=== PATIENT | male | born 1940 | race Caucasian/White ===

== ENCOUNTER 2016-06-09 15:24 | Inpatient (IN) | payer OTHER, BC ==
[~2016-06-09] VITALS: Ht 185.4 cm; Wt 77.0 kg
[~2016-06-09 15:24] MED LIST: ACETAMINOPHEN1 EAC4 PO; ASPIR 8181 M1 PO; ATENOLOL50 MG PO; CARDIZEM CD360 MG PO; CARDIZEM60 MG PO; CARVEDILOL12.5 MG PO; CARVEDILOL25 MG PO; CORDARONE200 MG PO; CRESTOR20 MG PO; DILTIAZEM 24HR360 M1 PO; ELIQUIS5 MG PO; ESCITALOPRAM OX20 MG PO; FENOFIBRATE145 M1 PO; FOLIC ACID1 MG PO; FUROSEMIDE20 MG PO; FUROSEMIDE40 MG PO; IRON325 M1 PO; LASIX20 MG PO; LEXAPRO10 MG PO; LEXAPRO20 MG PO; LISINOPRIL5 MG PO; LO-DOSE ASPIRIN81 M1 PO; LOPRESSOR25 MG PO; METOPROLOL SUCC25 MG PO; NEXIUM40 MG PO; NITROSTAT0.4 MG SL; PANTOPRAZOLE SO40 MG PO; PROAIR HFA8.5 GM IH; PROTONIX40 MG PO; ST. JOSEPH ASPI81 MG PO; TOPROL XL25 MG PO; TRAMADOL HCL50 MG PO; TRICOR145 MG PO; TYLENOL EXTRA500 MG PO; TYLENOL REGULA325 MG PO; VITAMIN B-122500 MCG SL
[2016-06-09 17:32] VITALS: BP 101/74
[2016-06-09] MEDS ORDERED: COLACE100 MG PO (17:57)
[2016-06-10 00:01] VITALS: BP 109/70
[2016-06-10 05:23] VITALS: BP 102/71
[2016-06-10 15:24] VITALS: BP 96/70
[2016-06-10 21:04] VITALS: BP 100/50
[2016-06-11 05:36] VITALS: BP 114/66
[2016-06-11 08:11] VITALS: BP 118/76
[2016-06-11 15:17] VITALS: BP 99/68
[2016-06-11 21:00] VITALS: BP 117/77
[2016-06-12 04:00] VITALS: BP 142/74
[2016-06-12 12:58] VITALS: BP 108/68
[2016-06-12 15:10] VITALS: BP 119/70
[2016-06-13 04:00] VITALS: BP 101/65
[2016-06-13] MEDS ORDERED: CORDARONE200 MG PO (12:26)
[2016-06-13] MEDS ORDERED: FUROSEMIDE40 MG PO (12:26)
[2016-06-13] MEDS ORDERED: Tylenol Extra Streng PO (12:26)
[2016-06-13] MEDS ORDERED: TYLENOL PM1 CAPLET PO (12:26)
[2016-06-13] MEDS ORDERED: LOPRESSOR25 MG PO (12:26)
[2016-06-13] MEDS ORDERED: PROTONIX40 MG PO (12:26)
[2016-06-13 13:50] LABS: HEMATOCRIT 38.5 % (38.0-50.0); MCH 31.3 PG (29.0-34.0); MCV 92.1 FL (86-99); MEAN PLAT.VOLUME 11.7 uM^3 (9.0-12.4); PLATELET COUNT 219 K/uL (156-360); RBC DIS.WIDTH-CV 16.3 % (11.8-14.6); RBC DIS.WIDTH-SD 54.3 % (39-53); RED BLOOD COUNT 4.18 M/uL (4.00-5.50); WHITE BLOOD COUNT 5.2 K/uL (4.1-10.2)
[2016-06-13 13:55] LABS: EOSINOPHIL (%) 2.1 % (0-5); EOSINOPHIL COUNT 0.1 K/uL (0-0.3); IMMATURE GRANULOCYTE (%) 0.2 % (0.0-0.7); LYMPHOCYTE COUNT 0.5 K/uL (1.0-2.8); MONOCYTE (%) 10.1 % (3-12); MONOCYTE COUNT 0.5 K/uL (0-0.8); NEUTROPHIL (%) 77.9 % (45-76)
[2016-06-13 14:05] LABS: ANION GAP 16 MEQ/L (2-14); CHLORIDE 96 MEQ/L (99-109); POTASSIUM 3.5 MEQ/L (3.7-5.4); SAMPLE HEMOLYSIS CHECK 0; SAMPLE ICTERIC CHECK 0; SAMPLE LIPEMIA CHECK 0; SODIUM 139 MEQ/L (136-147); TOTAL BILIRUBIN 1.4 MG/DL (0.0-1.0)
[2016-06-13 14:13] LABS: ALKALINE PHOSPHATASE 71 IU/L (3-129); GFR ESTIMATE (CALCULATED) 53 mL/min/; GLUCOSE 122 mg/dL (70-99); UREA NITROGEN (BUN) 29 mg/dL (9-23)
[2016-06-13 15:29] VITALS: BP 99/62
[2016-06-14 05:06] VITALS: BP 102/73
[2016-06-14] MEDS ORDERED: ELIQUIS5 MG PO (13:04)
[2016-06-14 15:56] VITALS: BP 102/65
[2016-06-15 05:17] VITALS: BP 107/70
[2016-06-15 15:32] VITALS: BP 96/64
[2016-06-15 20:05] VITALS: BP 116/67
[2016-06-16 05:32] VITALS: BP 101/62
[2016-06-16] MEDS ORDERED: LASIX40 MG PO (10:26)
[2016-06-16] MEDS ORDERED: K-DUR20 MEQ PO (10:46)
== END 2016-06-16 11:00 | disposition home health service (06) | DRG 945 ==
LOC: 3WEST 15:24
PROVIDERS: Psychiatry & Neurology Neurology
PROC: F07M0ZZ Range of Motion and Joint Mobility Treatment of Musculoskeletal System - Whole Body (ICD-10-PCS; principal; 2016-06-09)
PROC: 5A2204Z Restoration of Cardiac Rhythm, Single (ICD-10-PCS; 2016-06-13)
DX: R41.0 Disorientation, unspecified (principal); G93.40 Encephalopathy, unspecified; J96.01 Acute respiratory failure with hypoxia; D62 Acute posthemorrhagic anemia; R26.9 Unspecified abnormalities of gait and mobility; K21.9 Gastro-esophageal reflux disease without esophagitis; E78.5 Hyperlipidemia, unspecified; F32.9 Major depressive disorder, single episode, unspecified; K22.70 Barrett's esophagus without dysplasia; I25.10 Atherosclerotic heart disease of native coronary artery without angina pectoris; I48.2 Chronic atrial fibrillation; E87.5 Hyperkalemia; G72.9 Myopathy, unspecified; E87.1 Hypo-osmolality and hyponatremia; I50.9 Heart failure, unspecified; R53.1 Weakness
CPT/HCPCS: 80053; 85025; 92507 GN; 92523 GN; 93005; 97110 GO; 97530 GP; 97532 GN

== ENCOUNTER 2016-08-28 10:57 | Inpatient (IN) | payer OTHER, BC ==
[~2016-08-28] VITALS: Ht 185.4 cm; Wt 82.7 kg
[~2016-08-28 10:57] MED LIST changes: +COLACE100 MG PO; +K-DUR20 MEQ PO; +LASIX40 MG PO; +TYLENOL PM1 CAPLET PO; +Tylenol Extra Streng PO
[2016-08-28 11:59] LABS: EOSINOPHIL (%) 0.5 % (0-5); HEMATOCRIT 29.1 % (38.0-50.0); IMMATURE GRANULOCYTE (%) 0.5 % (0.0-0.7); INSTRUMENT ABS NEUTROPHIL CT 3.3 K/uL; LYMPHOCYTE COUNT 0.5 K/uL (1.0-2.8); MCH 33.1 PG (29.0-34.0); MCHC 32.6 G/DL (30.0-36.0); MCV 101.4 FL (86-99); MEAN PLAT.VOLUME 11.1 uM^3 (9.0-12.4); MONOCYTE (%) 12.6 % (3-12); MONOCYTE COUNT 0.6 K/uL (0-0.8); NEUTROPHIL (%) 74.9 % (45-76); NEUTROPHIL COUNT 3.3 K/uL (1.8-6.4); NRBC (%) 0.5 /100 WBC (0-0); PLATELET COUNT 177 K/uL (156-360); RBC DIS.WIDTH-CV 18.3 % (11.8-14.6); RBC DIS.WIDTH-SD 68.5 % (39-53); RED BLOOD COUNT 2.87 M/uL (4.00-5.50); WHITE BLOOD COUNT 4.4 K/uL (4.1-10.2)
[2016-08-28 12:18] LABS: CHLORIDE 101 mEq/L (99-109); POTASSIUM 4.7 mEq/L (3.7-5.4); SODIUM 130 mEq/L (136-147)
[2016-08-28 12:20] LABS: GLUCOSE 137 mg/dL (70-99)
[2016-08-28 12:22] LABS: ANION GAP 11 MEQ/L (2-14); TOTAL BILIRUBIN 1.7 mg/dL (0.0-1.0)
[2016-08-28 12:24] LABS: ALKALINE PHOSPHATASE 96 IU/L (3-129); GFR ESTIMATE (CALCULATED) 57 mL/min/
[2016-08-28 12:25] LABS: UREA NITROGEN (BUN) 18 mg/dL (9-23)
[2016-08-28 12:28] LABS: TROP-I INTERPRETATION NEGATIVE; TROPONIN-I 0.27 ng/mL (0.0-0.30)
[2016-08-28] MEDS ORDERED: PAIN RELIEF325 M1 PO (13:27)
[2016-08-28] MEDS ORDERED: ASPIR 8181 M1 PO (13:30)
[2016-08-28] MEDS ORDERED: LEXAPRO20 MG PO (13:31)
[2016-08-28] MEDS ORDERED: LASIX20 MG PO (13:32)
[2016-08-28] MEDS ORDERED: K-DUR20 MEQ PO (13:35)
[2016-08-28] MEDS ORDERED: CRESTOR20 MG PO (13:36)
[2016-08-28 13:39] LABS: CREATINE KINASE 69 IU/L (1-294); TOTAL CK 69 IU/L (1-294)
[2016-08-28 13:48] LABS: ADD MIUA? YES; BILIRUBIN NEGATIVE; BLOOD NEGATIVE; COLOR AMBER ((YELLOW)); GLUCOSE (STRIP) NEGATIVE; KETONES NEGATIVE; LEUKOCYTES NEGATIVE; NITRITE NEGATIVE; PROTEIN (STRIP) 30; SPECIFIC GRAVITY 1.021 (1.000-1.030)
[2016-08-28 13:56] LABS: BACTERIA NONE SEEN /HPF; EPITHELIAL CELLS RARE /HPF; MUCUS TRACE /LPF; RED BLOOD CELLS NONE SEEN /HPF (0-5)
[2016-08-28] MEDS ORDERED: AMIODARONE HCL100 MG PO (13:56)
[2016-08-28] MEDS ORDERED: ELIQUIS5 MG PO (13:58)
[2016-08-28] MEDS ORDERED: METOPROLOL SUCC25 MG PO (13:59)
[2016-08-28] MEDS ORDERED: LISINOPRIL2.5 MG PO (14:00)
[2016-08-28 17:52] VITALS: BP 95/64
[2016-08-28 19:00] VITALS: BP 107/67
[2016-08-28 21:42] LABS: HEMATOCRIT 26.2 % (38.0-50.0); MCV 102.7 FL (86-99)
[2016-08-28 23:00] VITALS: BP 105/64
[2016-08-29 03:00] VITALS: BP 100/64
[2016-08-29 06:54] LABS: HEMATOCRIT 28.6 % (38.0-50.0); MCH 33.3 PG (29.0-34.0); MCHC 32.2 G/DL (30.0-36.0); MCV 103.6 FL (86-99); MEAN PLAT.VOLUME 11.1 uM^3 (9.0-12.4); NRBC (%) 0.4 /100 WBC (0-0); PLATELET COUNT 163 K/uL (156-360); RBC DIS.WIDTH-CV 18.9 % (11.8-14.6); RBC DIS.WIDTH-SD 71.7 % (39-53); RED BLOOD COUNT 2.76 M/uL (4.00-5.50); WHITE BLOOD COUNT 4.5 K/uL (4.1-10.2)
[2016-08-29 07:18] LABS: TROP-I INTERPRETATION NEGATIVE; TROPONIN-I 0.29 ng/mL (0.0-0.30)
[2016-08-29 07:19] LABS: ANION GAP 11 MEQ/L (2-14); CHLORIDE 100 MEQ/L (99-109); GFR ESTIMATE (CALCULATED) > 59 mL/min/; GLUCOSE 108 mg/dL (70-99); SAMPLE HEMOLYSIS CHECK 1; SAMPLE ICTERIC CHECK 0; SAMPLE LIPEMIA CHECK 0; SODIUM 130 MEQ/L (136-147); UREA NITROGEN (BUN) 20 mg/dL (9-23)
[2016-08-29 07:20] LABS: POTASSIUM 4.7 MEQ/L (3.7-5.4)
[2016-08-29 07:58] VITALS: BP 99/67
[2016-08-29 15:32] LABS: BASE EXCESS -6.1 mEq/L (-3 to +3); CARBOXY HGB 1.9 % (0-5); METHEMOGLOBIN 0.2 % (0-1.5); PCO2 29 mm Hg (35-45); PO2 82 mm Hg (80-100)
[2016-08-29 15:40] LABS: VENOUS PCO2 35 mm Hg (41-51)
[2016-08-29 15:40] LABS: COMMENTS - BLOOD GASES C+
[2016-08-29 15:41] LABS: CARBON DIOXIDE (BICARBONATE) < 32.0 MEQ/L (20-31)
[2016-08-29 19:27] VITALS: BP 107/70
[2016-08-30] VITALS (8 sets, daily range): BP systolic 90–107; BP diastolic 56–70
[2016-08-30 06:50] LABS: EOSINOPHIL (%) 0.4 % (0-5); HEMATOCRIT 27.8 % (38.0-50.0); IMMATURE GRANULOCYTE (%) 0.6 % (0.0-0.7); INSTRUMENT ABS NEUTROPHIL CT 3.8 K/uL; LYMPHOCYTE COUNT 0.4 K/uL (1.0-2.8); MCH 33.7 PG (29.0-34.0); MCHC 32.4 G/DL (30.0-36.0); MCV 104.1 FL (86-99); MEAN PLAT.VOLUME 11.5 uM^3 (9.0-12.4); MONOCYTE (%) 13.1 % (3-12); MONOCYTE COUNT 0.6 K/uL (0-0.8); NEUTROPHIL (%) 77.3 % (45-76); NEUTROPHIL COUNT 3.8 K/uL (1.8-6.4); PLATELET COUNT 183 K/uL (156-360); RBC DIS.WIDTH-SD 71.9 % (39-53); RED BLOOD COUNT 2.67 M/uL (4.00-5.50); WHITE BLOOD COUNT 4.9 K/uL (4.1-10.2)
[2016-08-30 07:23] LABS: ANION GAP 13 MEQ/L (2-14); CHLORIDE 101 MEQ/L (99-109); GFR ESTIMATE (CALCULATED) 53 mL/min/; GLUCOSE 122 mg/dL (70-99); POTASSIUM 5.1 MEQ/L (3.7-5.4); SAMPLE HEMOLYSIS CHECK 0; SAMPLE ICTERIC CHECK 0; SAMPLE LIPEMIA CHECK 0; SODIUM 132 MEQ/L (136-147); UREA NITROGEN (BUN) 25 mg/dL (9-23)
[2016-08-31] VITALS (7 sets, daily range): BP systolic 85–105; BP diastolic 54–66
[2016-08-31 07:02] LABS: EOSINOPHIL (%) 1.5 % (0-5); EOSINOPHIL COUNT 0.1 K/uL (0-0.3); HEMATOCRIT 27.3 % (38.0-50.0); IMMATURE GRANULOCYTE (%) 0.6 % (0.0-0.7); INSTRUMENT ABS NEUTROPHIL CT 3.4 K/uL; LYMPHOCYTE COUNT 0.5 K/uL (1.0-2.8); MCH 32.8 PG (29.0-34.0); MCHC 31.9 G/DL (30.0-36.0); MEAN PLAT.VOLUME 11.1 uM^3 (9.0-12.4); MONOCYTE (%) 14.8 % (3-12); MONOCYTE COUNT 0.7 K/uL (0-0.8); NEUTROPHIL (%) 72.6 % (45-76); NEUTROPHIL COUNT 3.4 K/uL (1.8-6.4); NRBC (%) 0.4 /100 WBC (0-0); PLATELET COUNT 179 K/uL (156-360); RBC DIS.WIDTH-CV 18.7 % (11.8-14.6); RBC DIS.WIDTH-SD 71.2 % (39-53); RED BLOOD COUNT 2.65 M/uL (4.00-5.50); WHITE BLOOD COUNT 4.7 K/uL (4.1-10.2)
[2016-08-31 07:19] LABS: ANION GAP 10 MEQ/L (2-14); CHLORIDE 100 MEQ/L (99-109); GFR ESTIMATE (CALCULATED) > 59 mL/min/; GLUCOSE 107 mg/dL (70-99); POTASSIUM 4.6 MEQ/L (3.7-5.4); SAMPLE HEMOLYSIS CHECK 0; SAMPLE ICTERIC CHECK 0; SAMPLE LIPEMIA CHECK 0; SODIUM 130 MEQ/L (136-147); UREA NITROGEN (BUN) 29 mg/dL (9-23)
[2016-09-01 03:41] VITALS: BP 102/60
[2016-09-01 06:52] LABS: EOSINOPHIL (%) 2.5 % (0-5); EOSINOPHIL COUNT 0.1 K/uL (0-0.3); HEMATOCRIT 27.2 % (38.0-50.0); INSTRUMENT ABS NEUTROPHIL CT 2.9 K/uL; LYMPHOCYTE COUNT 0.4 K/uL (1.0-2.8); MCHC 32.7 G/DL (30.0-36.0); MCV 103.8 FL (86-99); MEAN PLAT.VOLUME 11.1 uM^3 (9.0-12.4); MONOCYTE (%) 12.9 % (3-12); MONOCYTE COUNT 0.5 K/uL (0-0.8); NEUTROPHIL (%) 73.7 % (45-76); NEUTROPHIL COUNT 2.9 K/uL (1.8-6.4); PLATELET COUNT 181 K/uL (156-360); RBC DIS.WIDTH-CV 18.2 % (11.8-14.6); RBC DIS.WIDTH-SD 69.5 % (39-53); RED BLOOD COUNT 2.62 M/uL (4.00-5.50)
[2016-09-01 07:13] LABS: ANION GAP 8 MEQ/L (2-14); CHLORIDE 99 MEQ/L (99-109); GFR ESTIMATE (CALCULATED) > 59 mL/min/; GLUCOSE 101 mg/dL (70-99); POTASSIUM 4.2 MEQ/L (3.7-5.4); SAMPLE HEMOLYSIS CHECK 0; SAMPLE ICTERIC CHECK 0; SAMPLE LIPEMIA CHECK 0; SODIUM 128 MEQ/L (136-147); UREA NITROGEN (BUN) 24 mg/dL (9-23)
[2016-09-01 07:16] VITALS: BP 96/65
[2016-09-01 12:10] VITALS: BP 87/56
[2016-09-01 19:41] VITALS: BP 86/53
[2016-09-01 21:32] VITALS: BP 97/60
[2016-09-02 00:54] VITALS: BP 91/56
[2016-09-02 05:19] VITALS: BP 104/61
[2016-09-02 07:32] LABS: EOSINOPHIL (%) 3.6 % (0-5); EOSINOPHIL COUNT 0.1 K/uL (0-0.3); HEMATOCRIT 28.5 % (38.0-50.0); IMMATURE GRANULOCYTE (%) 0.6 % (0.0-0.7); INSTRUMENT ABS NEUTROPHIL CT 2.3 K/uL; LYMPHOCYTE COUNT 0.4 K/uL (1.0-2.8); MCHC 31.6 G/DL (30.0-36.0); MCV 104.4 FL (86-99); MONOCYTE (%) 16.1 % (3-12); MONOCYTE COUNT 0.5 K/uL (0-0.8); NEUTROPHIL (%) 68.7 % (45-76); NEUTROPHIL COUNT 2.3 K/uL (1.8-6.4); PLATELET COUNT 182 K/uL (156-360); RBC DIS.WIDTH-SD 68.3 % (39-53); RED BLOOD COUNT 2.73 M/uL (4.00-5.50); WHITE BLOOD COUNT 3.4 K/uL (4.1-10.2)
[2016-09-02 07:45] VITALS: BP 92/64
[2016-09-02 07:58] LABS: ANION GAP 7 MEQ/L (2-14); CHLORIDE 98 MEQ/L (99-109); GFR ESTIMATE (CALCULATED) > 59 mL/min/; GLUCOSE 87 mg/dL (70-99); POTASSIUM 3.9 MEQ/L (3.7-5.4); SAMPLE HEMOLYSIS CHECK 0; SAMPLE ICTERIC CHECK 0; SAMPLE LIPEMIA CHECK 0; SODIUM 129 MEQ/L (136-147); UREA NITROGEN (BUN) 19 mg/dL (9-23)
[2016-09-02 10:42] VITALS: BP 89/58
== END 2016-09-02 13:01 | disposition short-term general hospital (02) | DRG 286 ==
LOC: EME 10:57 → EDOF 13:49 → 4EAST 17:36
PROVIDERS: Emergency Medicine; Internal Medicine; Internal Medicine Cardiovascular Disease; Physician Assistant
PROC: B218YZZ Fluoroscopy of Left Internal Mammary Bypass Graft using Other Contrast (ICD-10-PCS; principal; 2016-08-29)
PROC: B41FYZZ Fluoroscopy of Right Lower Extremity Arteries using Other Contrast (ICD-10-PCS; principal; 2016-08-29)
PROC: B211YZZ Fluoroscopy of Multiple Coronary Arteries using Other Contrast (ICD-10-PCS; principal; 2016-08-29)
PROC: B213YZZ Fluoroscopy of Multiple Coronary Artery Bypass Grafts using Other Contrast (ICD-10-PCS; principal; 2016-08-29)
PROC: 4A023N8 Measurement of Cardiac Sampling and Pressure, Bilateral, Percutaneous Approach (ICD-10-PCS; principal; 2016-08-29)
PROC: B215YZZ Fluoroscopy of Left Heart using Other Contrast (ICD-10-PCS; principal; 2016-08-29)
DX: I25.5 Ischemic cardiomyopathy (principal); R57.0 Cardiogenic shock; E87.1 Hypo-osmolality and hyponatremia; I50.22 Chronic systolic (congestive) heart failure; N17.9 Acute kidney failure, unspecified; I48.92 Unspecified atrial flutter; D62 Acute posthemorrhagic anemia; T50.8X5A Adverse effect of diagnostic agents, initial encounter; I95.9 Hypotension, unspecified; N18.3 Chronic kidney disease, stage 3 (moderate); I25.10 Atherosclerotic heart disease of native coronary artery without angina pectoris; I12.9 Hypertensive chronic kidney disease with stage 1 through stage 4 chronic kidney disease, or unspecified chronic kidney disease; E78.5 Hyperlipidemia, unspecified; Z96.652 Presence of left artificial knee joint; Z95.5 Presence of coronary angioplasty implant and graft; S30.0XXA Contusion of lower back and pelvis, initial encounter; I48.91 Unspecified atrial fibrillation; K21.9 Gastro-esophageal reflux disease without esophagitis; I27.2 Other secondary pulmonary hypertension; I08.1 Rheumatic disorders of both mitral and tricuspid valves; I70.201 Unspecified atherosclerosis of native arteries of extremities, right leg; W19.XXXA Unspecified fall, initial encounter
CPT/HCPCS: 36600; 70450; 71010; 73502; 73700; 74176; 80048; 80053; 81003; 82550 91; 82553; 82803; 83735; 83880; 84484; 85014; 85018; 85025; 85027; 87040; 93005; 97530 GO; 99281; 99285; C1760; C1769; C1887; C1894; J1644; J1940; J2250; J3010; J7030; J7120

== ENCOUNTER 2016-10-10 15:21 | Inpatient (IN) | payer OTHER, BC ==
[~2016-10-10] VITALS: Ht 185.4 cm; Wt 82.3 kg
[~2016-10-10 15:21] MED LIST changes: +AMIODARONE HCL100 MG PO; +LISINOPRIL2.5 MG PO; +PAIN RELIEF325 M1 PO
[2016-10-10] MEDS ORDERED: UNABLE TO OBTAIN (16:42)
[2016-10-10 17:36] LABS: HEMATOCRIT 33.5 % (38.0-50.0); MCHC 33.1 G/DL (30.0-36.0); MEAN PLAT.VOLUME 10.9 uM^3 (9.0-12.4); PLATELET COUNT 203 K/uL (156-360); RBC DIS.WIDTH-CV 14.6 % (11.8-14.6); RBC DIS.WIDTH-SD 50.1 % (39-53); RED BLOOD COUNT 3.58 M/uL (4.00-5.50)
[2016-10-10 17:39] LABS: MCV 93.6 FL (86-99); WHITE BLOOD COUNT 5.4 K/uL (4.1-10.2)
[2016-10-10 17:55] LABS: CHLORIDE 91 mEq/L (99-109); POTASSIUM 5.1 mEq/L (3.7-5.4); SODIUM 126 mEq/L (136-147)
[2016-10-10 17:57] LABS: GLUCOSE 115 mg/dL (70-99)
[2016-10-10 18:01] LABS: GFR ESTIMATE (CALCULATED) 39 mL/min/
[2016-10-10 18:02] LABS: UREA NITROGEN (BUN) 26 mg/dL (9-23)
[2016-10-10 18:03] LABS: TROP-I INTERPRETATION NEGATIVE; TROPONIN-I 0.04 ng/mL (0.0-0.30)
[2016-10-10 18:18] LABS: ANION GAP 21 MEQ/L (2-14)
[2016-10-10 18:27] LABS: INTER. NORMALIZED RATIO 1.4; PROTHROMBIN TIME 14.4 (9.2-11.2); PTT 29.2 (25-32)
[2016-10-10] MEDS ORDERED: MULTAQ400 MG PO (19:47)
[2016-10-10] MEDS ORDERED: SPIRONOLACTONE25 MG PO (19:48)
[2016-10-10] MEDS ORDERED: TORSEMIDE100 MG PO (19:48)
[2016-10-10 22:27] VITALS: BP 92/72
[2016-10-10 23:55] LABS: TROP-I INTERPRETATION NEGATIVE; TROPONIN-I 0.04 ng/mL (0.0-0.30)
[2016-10-11 04:12] VITALS: BP 99/65
[2016-10-11 07:21] LABS: HEMATOCRIT 29.4 % (38.0-50.0); MCHC 33.3 G/DL (30.0-36.0); MEAN PLAT.VOLUME 11.6 uM^3 (9.0-12.4); PLATELET COUNT 171 K/uL (156-360); RBC DIS.WIDTH-CV 14.6 % (11.8-14.6); RBC DIS.WIDTH-SD 50.3 % (39-53); RED BLOOD COUNT 3.16 M/uL (4.00-5.50); WHITE BLOOD COUNT 5.1 K/uL (4.1-10.2)
[2016-10-11 07:40] LABS: ANION GAP 15 MEQ/L (2-14); CHLORIDE 91 MEQ/L (99-109); GFR ESTIMATE (CALCULATED) 37 mL/min/; GLUCOSE 109 mg/dL (70-99); POTASSIUM 5.4 MEQ/L (3.7-5.4); SAMPLE HEMOLYSIS CHECK 0; SAMPLE ICTERIC CHECK 0; SAMPLE LIPEMIA CHECK 0; SODIUM 123 MEQ/L (136-147); UREA NITROGEN (BUN) 31 mg/dL (9-23)
[2016-10-11 07:44] LABS: TROP-I INTERPRETATION NEGATIVE; TROPONIN-I 0.05 ng/mL (0.0-0.30)
[2016-10-11 08:23] VITALS: BP 97/67
[2016-10-11 11:33] VITALS: BP 101/65
[2016-10-11 15:40] VITALS: BP 97/64
[2016-10-11 20:01] VITALS: BP 106/73
[2016-10-11 22:44] LABS: UR CREATININE CONCENTRATION 139.1 MG/DL
[2016-10-12] VITALS: BP 106/68
[2016-10-12 04:29] VITALS: BP 105/59
[2016-10-12 06:26] LABS: ANION GAP 15 MEQ/L (2-14); CHLORIDE 92 MEQ/L (99-109); GFR ESTIMATE (CALCULATED) 35 mL/min/; GLUCOSE 110 mg/dL (70-99); POTASSIUM 4.9 MEQ/L (3.7-5.4); SAMPLE HEMOLYSIS CHECK 0; SAMPLE ICTERIC CHECK 0; SAMPLE LIPEMIA CHECK 0; SODIUM 125 MEQ/L (136-147); UREA NITROGEN (BUN) 37 mg/dL (9-23)
[2016-10-12 08:21] VITALS: BP 102/62
[2016-10-12 11:38] VITALS: BP 98/69
[2016-10-12 15:21] VITALS: BP 91/61
[2016-10-12 20:00] VITALS: BP 98/60
[2016-10-13 03:30] VITALS: BP 106/72
[2016-10-13 05:34] LABS: EOSINOPHIL (%) 0.2 % (0-5); IMMATURE GRANULOCYTE (%) 0.7 % (0.0-0.7); INSTRUMENT ABS NEUTROPHIL CT 4.3 K/uL; LYMPHOCYTE COUNT 0.4 K/uL (1.0-2.8); MCH 31.6 PG (29.0-34.0); MCHC 33.3 G/DL (30.0-36.0); MCV 94.9 FL (86-99); MEAN PLAT.VOLUME 11.2 uM^3 (9.0-12.4); MONOCYTE (%) 12.5 % (3-12); MONOCYTE COUNT 0.7 K/uL (0-0.8); NEUTROPHIL (%) 78.8 % (45-76); NEUTROPHIL COUNT 4.3 K/uL (1.8-6.4); PLATELET COUNT 169 K/uL (156-360); RBC DIS.WIDTH-CV 14.8 % (11.8-14.6); RED BLOOD COUNT 3.16 M/uL (4.00-5.50); WHITE BLOOD COUNT 5.5 K/uL (4.1-10.2)
[2016-10-13 06:00] LABS: ANION GAP 16 MEQ/L (2-14); CHLORIDE 94 MEQ/L (99-109); GFR ESTIMATE (CALCULATED) 31 mL/min/; GLUCOSE 116 mg/dL (70-99); SAMPLE HEMOLYSIS CHECK 0; SAMPLE ICTERIC CHECK 0; SAMPLE LIPEMIA CHECK 0; SODIUM 127 MEQ/L (136-147); UREA NITROGEN (BUN) 44 mg/dL (9-23)
[2016-10-13 08:25] VITALS: BP 92/60
== END 2016-10-13 14:24 | disposition home health service (06) | DRG 309 ==
LOC: EME 15:21 → EDOF 21:07 → 5WEST 22:12
PROVIDERS: Emergency Medicine; Internal Medicine; Internal Medicine Nephrology; Nurse Practitioner Adult Health
DX: I48.0 Paroxysmal atrial fibrillation (principal); I50.22 Chronic systolic (congestive) heart failure; E87.1 Hypo-osmolality and hyponatremia; E86.0 Dehydration; I27.2 Other secondary pulmonary hypertension; I13.0 Hypertensive heart and chronic kidney disease with heart failure and stage 1 through stage 4 chronic kidney disease, or unspecified chronic kidney disease; D63.1 Anemia in chronic kidney disease; I25.10 Atherosclerotic heart disease of native coronary artery without angina pectoris; K21.9 Gastro-esophageal reflux disease without esophagitis; M19.90 Unspecified osteoarthritis, unspecified site; N18.3 Chronic kidney disease, stage 3 (moderate); E78.5 Hyperlipidemia, unspecified; Z85.030 Personal history of malignant carcinoid tumor of large intestine; Z95.1 Presence of aortocoronary bypass graft; Z87.01 Personal history of pneumonia (recurrent); Z90.49 Acquired absence of other specified parts of digestive tract
CPT/HCPCS: 71020; 78582; 80048; 82570; 83880; 84295; 84300; 84484; 85025; 85027; 85379; 85610; 85730; 93005; 99281; 99285; A9540; A9567; G0378; J2405; J2765; J7030